=== PATIENT | female | born 1960 | race Caucasian/White ===

== ENCOUNTER 2020-05-30 12:57 | Outpatient (CLI) | payer OTHER, SELFPAY | END 2020-05-30 12:58 | disposition home or self-care (01) | LOC: ANHBWCAUD 12:57 | DX: H90.3 Sensorineural hearing loss, bilateral (principal) | CPT/HCPCS: 92557; 92567 ==

== ENCOUNTER 2020-09-26 11:00 | Outpatient (RCR) | payer OTHER, SELFPAY | END 2020-11-15 23:59 | disposition home or self-care (01) | LOC: ANHBWCAUD 11:00 | DX: Z46.1 Encounter for fitting and adjustment of hearing aid (principal) | CPT/HCPCS: 99199; V5160; V5261 ==